=== PATIENT | female | born 1950 | race Caucasian/White ===

== ENCOUNTER 2016-09-18 12:20 | Outpatient (CLI) | payer OTHER ==
[2016-09-18 19:34] LABS: BASOPHILS # (AUTO) 0.1 10^3/uL (0.0-0.1); BASOPHILS % (AUTO) 0.6 %; EOSINOPHILS # (AUTO) 0.1 10^3/uL (0.0-0.7); EOSINOPHILS % (AUTO) 1.3 %; HCT - HEMATOCRIT 45.8 % (37.0-47.0); HGB - HEMOGLOBIN 14.8 g/dL (12.0-16.0); LYMPHOCYTES # (AUTO) 3.6 10^3/uL (1.5-3.5); LYMPHOCYTES % (AUTO) 33.5 %; MEAN CORPUSCULAR HEMOGLOBIN 30.4 pg (27.0-31.0); MEAN CORPUSCULAR HGB CONC 32.3 g/dL (32.0-36.0); MEAN CORPUSCULAR VOLUME 94.1 fL (81.0-99.0); MEAN PLATELET VOLUME 8.8 fL (7.9-10.8); MONOCYTES # (AUTO) 0.8 10^3/uL (0.0-1.0); MONOCYTES % (AUTO) 7.1 %; NEUTROPHILS # (AUTO) 6.2 10^3/uL (1.5-6.6); NEUTROPHILS % (AUTO) 57.5 %; RED BLOOD COUNT 4.86 10^6/uL (4.20-5.40); RED CELL DISTRIBUTION WIDTH 14.2 % (12.0-15.0); UNCORRECTED WHITE BLOOD COUNT 10.8 x10^3/uL; WHITE BLOOD COUNT 10.8 x10^3/uL (4.8-10.8)
[2016-09-18 19:50] LABS: ALBUMIN/GLOBULIN RATIO 1.6 (1.0-2.2); BILIRUBIN,TOTAL 0.5 mg/dL (0.2-1.0); BUN - BLOOD UREA NITROGEN 17 mg/dL (6-20); CALCIUM 9.8 mg/dL (8.5-10.3); CARBON DIOXIDE - CO2 26 mmol/L (21-32); CHLORIDE 106 mmol/L (101-111); CHOL/HDL RATIO 3.5 (<4.4); CHOLESTEROL 187 mg/dL; CREATININE 0.6 mg/dL (0.4-1.0); GFR - MDRD 100 (>89); GLUCOSE 91 mg/dL (70-100); HDL CHOLESTEROL 54 mg/dL; LDL/HDL RATIO 1.4 (<4.4); POTASSIUM 3.6 mmol/L (3.5-5.0); SODIUM 141 mmol/L (135-145); TOTAL PROTEIN 7.1 g/dL (6.7-8.2); TRIGLYCERIDES 287 mg/dL; URIC ACID 3.8 mg/dL (2.6-7.2); VLDL CHOLESTEROL 57 mg/dL
== END 2016-09-18 12:21 | disposition home or self-care (01) ==
LOC: LAB.WCP 12:20
PROVIDERS: ATTEND Family Medicine
DX: I10 Essential (primary) hypertension (principal); M10.00 Idiopathic gout, unspecified site
CPT/HCPCS: 36415; 80053; 80061; 84550; 85025

== ENCOUNTER 2017-07-13 06:07 | Day surgery (SDC) | payer OTHER, MEDICARE ==
[2017-07-13] MEDS ORDERED: ceFAZolin 1 GM VIAL ONE (06:33)
[2017-07-13] MEDS ORDERED: LACTATED RINGERS 1,000 ML IV ONE ×2 (06:54→08:35)
[2017-07-13] MEDS ORDERED: BUPIVACAINE 0.25% PF 30 ML VIAL ONE (07:36)
[2017-07-13] MEDS ORDERED: LIDOCAINE 1% 50 ML MDV ONE (07:47)
[2017-07-13] MEDS ORDERED: LIDOCAINE 1% 50 ML MDV SUBQ ONE ×2 (07:50)
[2017-07-13] MEDS ORDERED: levoFLOXacin 500 MG/100 ML 500 MG/100 ML BAG IV ONE ×2 (07:51→08:00)
[2017-07-13] MEDS ORDERED: PROPOFOL 200 MG/20 ML VIAL IVP ONE (08:40)
[2017-07-13] MEDS ORDERED: diphenhydrAMINE INJ 50 MG/ML VIAL IVP ONE (08:40)
[2017-07-13] MEDS ORDERED: traMADol 50 MG TABLET PO ONE (09:56)
[2017-07-13 10:01] VITALS: BP 135/87
--- NOTE | 2017-07-13 10:02 | OPERATIVE REPORT ---
DATE OF SERVICE: 07/13/2017 Physician: Joss Camejo MD DATE OF PROCEDURE: 07/13/2017 PREOPERATIVE DIAGNOSIS: Right thumb flexor tenosynovitis with triggering. POSTOPERATIVE DIAGNOSIS: Right thumb attritional tear with triggering at the A1 fercho. PROCEDURE PERFORMED: Right thumb A1 fercho release. SURGEON: Joss Camejo MD METAL BONDING WORKER: None. ANESTHESIA: Vascular anesthesia, type LMA. ESTIMATED BLOOD LOSS: 1 mL COMPLICATIONS: None. TOURNIQUET TIME: 19 minutes at 225 mmHg. DESCRIPTION OF PROCEDURE: The patient was brought into the operating room and initially after preparing her position and leads, she was given some preoperative antibiotics. Kefzol and clindamycin were not given due to a prior reaction to ampicillin and Kefzol. Cipro was selected. She was given a small amount of this and seemed to develop erythema on the left forearm. She was given Benadryl for this. Decision was made not to proceed with either IV antibiotics as risk of further reaction was not worth the benefit. Vancomycin was considered. She was given IV propofol and about 1 mL of 1% lidocaine without epinephrine was delivered subcutaneously across the base of the thumb and the expected area of incision. Right upper extremity was then prepped and sterilely draped. Tourniquet was applied eventually inflated for 19 minutes at 225 mmHg. Timeout was held to identify the patient, site and procedure. The gently transverse slightly oblique incision was made through the volar crease at the base of the thumb. This was carried through the dermis sharply with spreading with small scissors in a proximal distal direction opening up the soft tissue. The radial digital nerve was identified and a retractor used to sweep this to the radial side. Position of this was checked intermittently during the procedure. There seemed to be some inflammation overlying the A1 ferhco, but after some cleaning of this with a [place] elevator it could easily be seen. A longitudinal incision was then made in the central portion of the A1 fercho. Its tight fibers could be seen as well as the tendon beneath. With extension of the thumb it was there noted that there was demarcation between what appeared to be normal tendon and some roughed up and degenerated portion of tendon on the volar aspect. The ulnar digital nerve was not directly seen, but was protected at the ulnar side in the soft tissues in that area. The A1 fercho release was continued distally where the fercho thinned out and was no longer pressing on the tendon. With care, it was then continued proximally until a proximal margin was reached. At that point, the flexion and extension of the thumb clearly caused the tendon to go back and forth across the A1 fercho area. Although the patient was asleep and we could not do the usual awake, active test, it seemed that the release was complete. Wound was irrigated with normal saline. Tourniquet was deflated and pressure held to avoid bleeding. 4-0 nylon [id number] sutures were used to close the wound. Sterile bandage was applied. The patient was then awakened, extubated, and taken to the recovery room in good condition, having tolerated the procedure well. TD: 07/13/2017 10:00
== END 2017-07-13 06:08 | disposition home or self-care (01) ==
LOC: SDS 06:07
PROVIDERS: ATTEND Orthopaedic Surgery
PROC: 0LN70ZZ Release Right Hand Tendon, Open Approach (ICD-10-PCS; principal; 2017-07-13 07:30)
DX: M65.311 Trigger thumb, right thumb (principal); I10 Essential (primary) hypertension; F41.8 Other specified anxiety disorders; Z86.73 Personal history of transient ischemic attack (TIA), and cerebral infarction without residual deficits; J45.909 Unspecified asthma, uncomplicated; Z88.1 Allergy status to other antibiotic agents; Z88.5 Allergy status to narcotic agent; Z88.8 Allergy status to other drugs, medicaments and biological substances
CPT/HCPCS: 26055; A9270; J1200; J7120

== ENCOUNTER 2018-11-29 08:00 | Outpatient (CLI) | payer OTHER ==
[2018-11-29 18:35] LABS: BASOPHILS # (AUTO) 0.1 10^3/uL (0.0-0.1); BASOPHILS % (AUTO) 0.4 %; EOSINOPHILS # (AUTO) 0.2 10^3/uL (0.0-0.7); EOSINOPHILS % (AUTO) 1.7 %; HGB - HEMOGLOBIN 14.5 g/dL (12.0-16.0); LYMPHOCYTES # (AUTO) 4.3 10^3/uL (1.5-3.5); LYMPHOCYTES % (AUTO) 33.4 %; MEAN CORPUSCULAR HEMOGLOBIN 30.9 pg (27.0-31.0); MEAN CORPUSCULAR HGB CONC 32.9 g/dL (32.0-36.0); MEAN CORPUSCULAR VOLUME 93.8 fL (81.0-99.0); MEAN PLATELET VOLUME 10.7 fL (7.9-10.8); MONOCYTES # (AUTO) 0.8 10^3/uL (0.0-1.0); MONOCYTES % (AUTO) 5.9 %; NEUTROPHILS # (AUTO) 7.4 10^3/uL (1.5-6.6); NEUTROPHILS % (AUTO) 58.3 %; PLT - PLATELET COUNT 242 10^3/uL (130-450); RED CELL DISTRIBUTION WIDTH 13.7 % (12.0-15.0); WHITE BLOOD COUNT 12.7 x10^3/uL (4.8-10.8)
[2018-11-29 18:49] LABS: ALBUMIN 4.1 g/dL (3.2-5.5); ALBUMIN/GLOBULIN RATIO 1.6 (1.0-2.2); ALKALINE PHOSPHATASE 90 IU/L (42-121); ALT ALANINE AMINOTRANSFERASE 37 IU/L (10-60); AST ASPARTATE AMINOTRANSFERASE 29 IU/L (10-42); BILIRUBIN,TOTAL 0.5 mg/dL (0.2-1.0); BUN - BLOOD UREA NITROGEN 15 mg/dL (6-20); CALCIUM 9.9 mg/dL (8.5-10.3); CARBON DIOXIDE - CO2 24 mmol/L (21-32); CHLORIDE 104 mmol/L (101-111); CHOL/HDL RATIO 3.5 (<4.4); CHOLESTEROL 195 mg/dL; CREATININE 0.8 mg/dL (0.4-1.0); GFR - MDRD 71 (>89); GLUCOSE 174 mg/dL (70-100); HDL CHOLESTEROL 55 mg/dL; SODIUM 142 mmol/L (135-145); TOTAL PROTEIN 6.7 g/dL (6.7-8.2); URIC ACID 3.4 mg/dL (2.6-7.2)
[2018-11-29 19:08] LABS: LDL CHOLESTEROL,DIRECT 118 mg/dL; LDLD/HDL RATIO 2.1 (<4.4)
== END 2018-11-29 23:59 | disposition home or self-care (01) ==
LOC: LAB.WCP 08:00
PROVIDERS: ATTEND Family Medicine
DX: I10 Essential (primary) hypertension (principal); M10.00 Idiopathic gout, unspecified site
CPT/HCPCS: 36415; 80053; 80061; 83721; 84550; 85025

== ENCOUNTER 2018-12-15 08:00 | Outpatient (CLI) | payer OTHER ==
[2018-12-15 18:58] LABS: BASOPHILS # (AUTO) 0.1 10^3/uL (0.0-0.1); BASOPHILS % (AUTO) 0.4 %; EOSINOPHILS # (AUTO) 0.2 10^3/uL (0.0-0.7); EOSINOPHILS % (AUTO) 1.5 %; HGB - HEMOGLOBIN 13.7 g/dL (12.0-16.0); LYMPHOCYTES # (AUTO) 4.5 10^3/uL (1.5-3.5); LYMPHOCYTES % (AUTO) 31.7 %; MEAN CORPUSCULAR HEMOGLOBIN 30.6 pg (27.0-31.0); MEAN CORPUSCULAR HGB CONC 31.7 g/dL (32.0-36.0); MEAN CORPUSCULAR VOLUME 96.4 fL (81.0-99.0); MEAN PLATELET VOLUME 10.8 fL (7.9-10.8); MONOCYTES % (AUTO) 7.3 %; NEUTROPHILS # (AUTO) 8.4 10^3/uL (1.5-6.6); NEUTROPHILS % (AUTO) 58.7 %; PLT - PLATELET COUNT 254 10^3/uL (130-450); RED BLOOD COUNT 4.48 10^6/uL (4.20-5.40); RED CELL DISTRIBUTION WIDTH 14.1 % (12.0-15.0); WHITE BLOOD COUNT 14.3 x10^3/uL (4.8-10.8)
[2018-12-15 19:12] LABS: CREATININE 0.7 mg/dL (0.4-1.0)
== END 2018-12-15 23:59 | disposition home or self-care (01) ==
LOC: LAB.WCP 08:00
PROVIDERS: ATTEND Family Medicine
DX: E87.6 Hypokalemia (principal); D72.829 Elevated white blood cell count, unspecified
CPT/HCPCS: 36415; 80048; 85025

== ENCOUNTER 2019-01-12 08:00 | Outpatient (CLI) | payer OTHER ==
[2019-01-12 18:56] LABS: BASOPHILS # (AUTO) 0.1 10^3/uL (0.0-0.1); BASOPHILS % (AUTO) 0.4 %; EOSINOPHILS # (AUTO) 0.2 10^3/uL (0.0-0.7); EOSINOPHILS % (AUTO) 1.7 %; HGB - HEMOGLOBIN 14.8 g/dL (12.0-16.0); LYMPHOCYTES # (AUTO) 4.2 10^3/uL (1.5-3.5); MEAN CORPUSCULAR HEMOGLOBIN 30.1 pg (27.0-31.0); MEAN CORPUSCULAR HGB CONC 31.4 g/dL (32.0-36.0); MEAN CORPUSCULAR VOLUME 96.1 fL (81.0-99.0); MEAN PLATELET VOLUME 10.7 fL (7.9-10.8); MONOCYTES # (AUTO) 0.8 10^3/uL (0.0-1.0); MONOCYTES % (AUTO) 6.3 %; NEUTROPHILS # (AUTO) 7.7 10^3/uL (1.5-6.6); NEUTROPHILS % (AUTO) 59.1 %; PLT - PLATELET COUNT 259 10^3/uL (130-450); RED BLOOD COUNT 4.91 10^6/uL (4.20-5.40); RED CELL DISTRIBUTION WIDTH 14.3 % (12.0-15.0)
== END 2019-01-12 23:59 | disposition home or self-care (01) ==
LOC: LAB.WCP 08:00
PROVIDERS: ATTEND Family Medicine
DX: D72.829 Elevated white blood cell count, unspecified (principal)
CPT/HCPCS: 36415; 85025

== ENCOUNTER 2019-04-02 12:27 | Outpatient (CLI) | payer OTHER ==
--- NOTE | 2019-04-03 08:49 | MRI Report ---
Reason: INTRACRANIAL ANEURYSM Procedure Date: 04/02/2019 Accession Number: [id number] / [id number] Procedure: MRI - Angio Brain W/O (MRA) CPT Code: Final Report FULL RESULT: MR ANGIOGRAM HEAD WITHOUT CONTRAST INDICATION: 68-year-old female. Family history of aneurysm. TECHNIQUE: 3D [id number] MR angiography. COMPARISON: No similar comparison studies available for review at the time of interpretation. FINDINGS: There is diffuse irregularity in the contour of the intracranial ICAs at the carotid siphons bilaterally, probably secondary to atherosclerotic disease. No hemodynamically significant stenosis is identified. There is a wide-necked outpouching arising from the lateral surface of the anterior cavernous segment of the left internal carotid artery. The neck appears to measure about 4 mm on image 86 of series 401. The aneurysm points laterally and slightly posteriorly. It appears to measure roughly 2.2 mm in length. Also demonstrated is a small vascular outpouching arising from the lateral wall of the posterior cavernous segment of the right internal carotid artery (see images 95 through 98 of series 401). This may simply represent a normal inferolateral trunk. However, the structure does appear to be blind-ending making it difficult to exclude a small aneurysm. The neck appears to measure about 1.2 mm. The lesion points laterally for a similar distance. No other definite ICA aneurysm is identified. The A1 segment of the left anterior cerebral artery is hypoplastic with dominant right A1 segment. An anterior communicating artery is demonstrated. There appears to be good flow-related enhancement in the imaged DANUTA branches bilaterally. 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 The neck of the aneurysm measures about 2.5 mm. The dome also measures about 2.5 mm. The aneurysm points anteriorly for about 2.7 mm. No other obvious aneurysm is identified in either anterior cerebral artery circulation. The middle cerebral arteries are unremarkable. No aneurysm is demonstrated and there is no obvious occlusion or hemodynamically significant stenosis affecting the main branches of either MCA. The right vertebral artery is hypoplastic. There is a small amount of flow-related enhancement in the mid to distal V3 segment. However, the distal-most aspect of the V3 segment shows no flow-related enhancement. There is no flow-related enhancement in the proximal V4 segment. These findings suggest probable occlusion. Flow-related enhancement is seen in the distal V4 segment, almost certainly filling in a retrograde fashion. However, no definite right PICA is demonstrated. There is a large right AICA that probably supplies the right PICA territory (normal anatomical variant). The left vertebral artery is patent. The left PICA is patent. No aneurysm is seen at the left PICA origin. The basilar artery, superior cerebellar arteries and the right PERL PROGRAMMER are unremarkable. The P1 segment for the left posterior cerebral artery is either extremely hypoplastic or developmentally absent. There is a large left posterior communicating artery that supplies the P2 and distal left PERL PROGRAMMER branches. This represents a known anatomical variant ( origin of the left PERL PROGRAMMER). There appears to be a tiny right posterior communicating artery. No aneurysms are seen arising from the basilar artery trunk or apex. IMPRESSION: 1. There is diffuse luminal irregularity in the carotid siphons probably from atherosclerotic disease. 2. 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 In addition, there may be a tiny aneurysm arising from the posterior cavernous segment of the right internal carotid artery (see above). These cavernous ICA lesions would probably not require therapy. Both should be extradural in location and rupture should therefore not result in a subarachnoid hemorrhage. 3. 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 The anterior communicating artery aneurysm points almost directly anteriorly. 4. No other intracranial aneurysm is identified. 5. There appears to be occlusion of the distal V3/proximal V4 segment of the right vertebral artery, age-indeterminate. The distal V4 segment appears to be patent. It almost certainly fills in a retrograde fashion. No right PICA is identified. The right PICA territory may be supplied by the ipsilateral AICA (normal anatomical variant). The call report notification system was initiated by Dr. Chidi Holm at 07:54 AM on 04/03/2019. A preliminary report for this examination was called to Dr. Jonas (covering for Dr. Obando) following interpretation on 04/03/2019 at 8:25 AM. Apparently this patient has known intracranial aneurysm(s) that have been previously documented on prior imaging studies. However, Dr. Jonas was not aware of where the prior imaging had been performed.
== END 2019-04-02 12:28 | disposition home or self-care (01) ==
LOC: DI 12:27
PROVIDERS: ATTEND Family Medicine
DX: I67.1 Cerebral aneurysm, nonruptured (principal)
CPT/HCPCS: 70544

== ENCOUNTER 2019-06-01 13:09 | Outpatient (CLI) | payer OTHER ==
[2019-06-01 19:33] LABS: CALCIUM 9.5 mg/dL (8.5-10.3); CREATININE 0.7 mg/dL (0.4-1.0)
== END 2019-06-01 23:59 | disposition home or self-care (01) ==
LOC: LAB.WCP 13:09
PROVIDERS: ATTEND Family Medicine
DX: I10 Essential (primary) hypertension (principal)
CPT/HCPCS: 36415; 80048

== ENCOUNTER 2019-07-02 08:17 | Outpatient (CLI) | payer OTHER ==
--- NOTE | 2019-07-03 07:33 | Ultrasound Report ---
Reason: RUQ ABDOMINAL PAIN Procedure Date: 07/02/2019 Accession Number: [id number] / [id number] Procedure: US - Abdomen Complete CPT Code: Final Report FULL RESULT: EXAM: ABDOMEN ULTRASOUND EXAM DATE: 07/02/2019 09:14 AM. CLINICAL HISTORY: RUQ ABDOMINAL PAIN. COMPARISON: None. TECHNIQUE: Real-time scanning was performed with static images obtained. FINDINGS: Liver: Hyperechoic. Fatty sparing along the gallbladder fossa. 14.4 cm. Main portal vein flow: Hepatopetal. Gallbladder: Echogenic structure along the gallbladder wall without posterior acoustic shadowing or mobility, measures 3 mm, consistent with gallbladder polyp. Additional gallbladder polyps, largest measuring 6 mm. No shadowing gallstones. Negative sonographic David sign. Biliary System: Common bile duct measures 6 mm. No intrahepatic or extrahepatic ductal dilatation. Pancreas: Visualized portion is unremarkable. Kidneys: Right: 11.7 cm longitudinally. Normal. No contour-deforming mass, stones, or hydronephrosis. Left: 10.1 cm longitudinally. Normal. No contour-deforming mass, stones, or hydronephrosis. Spleen: 9.9 x 2.7 x 10.1 cm for a volume of 139 mL. Normal in size and echotexture. Aorta and Inferior Vena Cava: Aortic atherosclerotic disease present Other: None. IMPRESSION: 1. Hepatic steatosis. 2. Small gallbladder polyps, largest measuring 6 mm RADIA
== END 2019-07-02 08:18 | disposition home or self-care (01) ==
LOC: DI 08:17
PROVIDERS: ATTEND Family Medicine
DX: K82.4 Cholesterolosis of gallbladder (principal); K76.0 Fatty (change of) liver, not elsewhere classified; R10.11 Right upper quadrant pain
CPT/HCPCS: 76700

== ENCOUNTER 2019-07-25 08:53 | Outpatient (CLI) | payer OTHER ==
[2019-07-25] MEDS ORDERED: SINCALIDE 5 MCG VIAL ONE (10:43)
[2019-07-25] MEDS ORDERED: SODIUM CHLORIDE 0.9% IV ONE (12:16)
[2019-07-25] MEDS ORDERED: SINCALIDE IV ONE (12:16)
--- NOTE | 2019-07-26 08:26 | Nuclear Medicine Report ---
Reason: ABD, RUQ Procedure Date: 07/25/2019 Accession Number: [id number] / [id number] Procedure: NM - Hepatobiliary HIDA w/ Rx CPT Code: Final Report FULL RESULT: EXAM: HEPATOBILIARY SCAN WITH CCK/KINEVAC ADMINISTRATION EXAM DATE: 07/25/2019 12:20 PM. CLINICAL HISTORY: Abdominal pain, RUQ. COMPARISON: None. TECHNIQUE: Following the intravenous administration of 5.1 mCi of Tc99m Mebrofenin, a hepatobiliary scan was done centered on the liver and gallbladder in multiple sequential images and projections. Following the intravenous administration of 1.58 mcg of CCK/ Kinevac over the course of approximately 60 minutes, dynamic imaging was done and the gallbladder ejection fraction was calculated. FINDINGS: Normal extraction of tracer from the blood pool indicating normal hepatocellular function. The liver size and shape is grossly within normal limits. Appearance of tracer in the biliary tree as early as 10 minutes, within normal limits. Appearance of tracer in the gallbladder as early as 15 minutes, within normal limits, with good progression of filling throughout the remainder of the initial hour. Appearance of tracer in the small bowel as early as 35 minutes, within normal limits. With CCK administration, the gallbladder demonstrates an effective contraction. The gallbladder ejection fraction is calculated to be 90%, well above the lower limit of normal of 38% for a 60-minute injection. The patient did not report symptoms after CCK administration. No evidence of enteric reflux into the stomach. No significant collection of tracer remaining in the common bile duct by the end of the study. IMPRESSION: 1. Patent cystic duct. 2. Patent common bile duct. 3. Negative for acute or chronic cholecystitis. 4. No enterogastric bile reflux. 5. Gallbladder ejection fraction of 90%. RADIA
== END 2019-07-25 08:54 | disposition home or self-care (01) ==
LOC: DI 08:53
PROVIDERS: ATTEND Surgery
DX: R10.11 Right upper quadrant pain (principal)
CPT/HCPCS: 78227; J7040

== ENCOUNTER 2020-03-01 09:40 | Outpatient (CLI) | payer OTHER ==
[2020-03-01 12:08] LABS: BASOPHILS % (AUTO) 0.5 %; EOSINOPHILS % (AUTO) 1.7 %; HGB - HEMOGLOBIN 15.1 g/dL (12.0-16.0); LYMPHOCYTES % (AUTO) 40.2 %; MEAN CORPUSCULAR HEMOGLOBIN 30.8 pg (27.0-31.0); MEAN CORPUSCULAR HGB CONC 32.4 g/dL (32.0-36.0); MEAN CORPUSCULAR VOLUME 94.9 fL (81.0-99.0); MEAN PLATELET VOLUME 10.4 fL (7.9-10.8); MONOCYTES % (AUTO) 8.5 %; NEUTROPHILS % (AUTO) 48.6 %; PLT - PLATELET COUNT 280 10^3/uL (130-450); RED BLOOD COUNT 4.91 10^6/uL (4.20-5.40); RED CELL DISTRIBUTION WIDTH 13.6 % (12.0-15.0); WHITE BLOOD COUNT 12.5 x10^3/uL (4.8-10.8)
[2020-03-01 12:18] LABS: ABNORMAL LYMPHS % (MANUAL) 0 %; BAND NEUTROPHILS % (MANUAL) 0 %
[2020-03-01 12:39] LABS: EOSINOPHILS # (MANUAL) 0.3 10^3/uL (0-0.7); LYMPHOCYTES # (MANUAL) 7.3 10^3/uL (1.5-3.5); LYMPHOCYTES % (MANUAL) 58 %; MONOCYTES # (MANUAL) 1.1 10^3/uL (0.0-1.0)
[2020-03-01 12:42] LABS: DIFFERENTIAL COMMENT MANUAL DIFFERENTIAL; PLATELET ESTIMATE, MANUAL NORMAL (130-450,000) (NORMAL); PLATELET MORPHOLOGY NORMAL APP (NORMAL); RBC MORPHOLOGY (MULTIPLE) NORMAL APP (NORMAL)
[2020-03-01 13:53] LABS: ALBUMIN 4.3 g/dL (3.2-5.5); ALBUMIN/GLOBULIN RATIO 1.5 (1.0-2.2); ALKALINE PHOSPHATASE 123 IU/L (42-121); ALT ALANINE AMINOTRANSFERASE 31 IU/L (10-60); AST ASPARTATE AMINOTRANSFERASE 25 IU/L (10-42); BILIRUBIN,TOTAL 0.7 mg/dL (0.2-1.0); BUN - BLOOD UREA NITROGEN 17 mg/dL (6-20); CARBON DIOXIDE - CO2 24 mmol/L (21-32); CHLORIDE 104 mmol/L (101-111); CHOL/HDL RATIO 3.1 (<4.4); CHOLESTEROL 172 mg/dL; CREATININE 0.9 mg/dL (0.4-1.0); GLUCOSE 136 mg/dL (70-100); HDL CHOLESTEROL 55 mg/dL; LDL CHOLESTEROL,CALCULATED 92 mg/dL; LDL/HDL RATIO 1.7 (<4.4); SODIUM 141 mmol/L (135-145); TOTAL PROTEIN 7.1 g/dL (6.7-8.2); URIC ACID 3.9 mg/dL (2.6-7.2); VLDL CHOLESTEROL 25 mg/dL
== END 2020-03-01 23:59 | disposition home or self-care (01) ==
LOC: LAB.WCP 09:40
PROVIDERS: ATTEND Family Medicine
DX: I10 Essential (primary) hypertension (principal); M10.00 Idiopathic gout, unspecified site
CPT/HCPCS: 36415; 80053; 80061; 83721; 84443; 84550; 85025

== ENCOUNTER 2020-06-20 11:07 | Outpatient (CLI) | payer OTHER ==
--- NOTE | 2020-06-20 13:11 | XRAY Report ---
PROCEDURE: Shoulder 3 View LT INDICATIONS: LEFT SHOULDER PAIN TECHNIQUE: 3 views of the shoulder were acquired. COMPARISON: None. FINDINGS: Bones: No fractures or dislocations. No suspicious bony lesions. Visualized ribs appear intact. Soft tissues: No suspicious soft tissue calcifications. IMPRESSION: No trauma found, source of pain is not identified. Reviewed by: Ozzy Hurt MD on 06/20/2020 1:10 PM [facility] Approved by: Ozzy Hurt MD on 06/20/2020 1:10 PM [facility] Station ID: [id number]
== END 2020-06-20 23:59 | disposition home or self-care (01) ==
LOC: DI.WCP 11:07
PROVIDERS: ATTEND Physician Assistant Medical
DX: M25.512 Pain in left shoulder (principal)

== ENCOUNTER 2020-08-08 08:00 | Outpatient (CLI) | payer OTHER ==
[2020-08-08 18:26] LABS: BASOPHILS # (AUTO) 0.1 10^3/uL (0.0-0.1); BASOPHILS % (AUTO) 0.5 %; EOSINOPHILS # (AUTO) 0.2 10^3/uL (0.0-0.7); EOSINOPHILS % (AUTO) 1.7 %; HCT - HEMATOCRIT 46.3 % (37.0-47.0); HGB - HEMOGLOBIN 14.9 g/dL (12.0-16.0); LYMPHOCYTES # (AUTO) 4.6 10^3/uL (1.5-3.5); LYMPHOCYTES % (AUTO) 36.2 %; MEAN CORPUSCULAR HEMOGLOBIN 30.8 pg (27.0-31.0); MEAN CORPUSCULAR HGB CONC 32.2 g/dL (32.0-36.0); MEAN CORPUSCULAR VOLUME 95.7 fL (81.0-99.0); MEAN PLATELET VOLUME 10.3 fL (7.9-10.8); MONOCYTES # (AUTO) 0.9 10^3/uL (0.0-1.0); MONOCYTES % (AUTO) 7.4 %; NEUTROPHILS # (AUTO) 6.8 10^3/uL (1.5-6.6); NEUTROPHILS % (AUTO) 53.6 %; PLT - PLATELET COUNT 266 10^3/uL (130-450); RED BLOOD COUNT 4.84 10^6/uL (4.20-5.40); RED CELL DISTRIBUTION WIDTH 14.3 % (12.0-15.0); WHITE BLOOD COUNT 12.7 x10^3/uL (4.8-10.8)
[2020-08-08 18:40] LABS: ALBUMIN 4.7 g/dL (3.2-5.5); ALBUMIN/GLOBULIN RATIO 1.6 (1.0-2.2); ALKALINE PHOSPHATASE 113 IU/L (42-121); ALT ALANINE AMINOTRANSFERASE 58 IU/L (10-60); AST ASPARTATE AMINOTRANSFERASE 39 IU/L (10-42); BILIRUBIN,TOTAL 0.6 mg/dL (0.2-1.0); BUN - BLOOD UREA NITROGEN 15 mg/dL (6-20); CALCIUM 10.1 mg/dL (8.5-10.3); CARBON DIOXIDE - CO2 25 mmol/L (21-32); CHLORIDE 104 mmol/L (101-111); CHOL/HDL RATIO 3.2 (<4.4); CHOLESTEROL 185 mg/dL; CREATININE 0.7 mg/dL (0.4-1.0); GFR - MDRD 82 (>89); GLUCOSE 98 mg/dL (70-100); HDL CHOLESTEROL 58 mg/dL; LDL CHOLESTEROL,CALCULATED 66 mg/dL; LDL/HDL RATIO 1.1 (<4.4); POTASSIUM 3.6 mmol/L (3.5-5.0); SODIUM 140 mmol/L (135-145); TOTAL PROTEIN 7.6 g/dL (6.7-8.2); TRIGLYCERIDES 307 mg/dL; VLDL CHOLESTEROL 61 mg/dL
== END 2020-08-08 23:59 | disposition home or self-care (01) ==
LOC: LAB.WCP 08:00
PROVIDERS: ATTEND Family Medicine
DX: I20.9 Angina pectoris, unspecified (principal)
CPT/HCPCS: 36415; 80053; 80061; 83721; 84484; 85025

== ENCOUNTER 2020-08-08 14:10 | Outpatient (CLI) | payer OTHER ==
--- NOTE | 2020-08-08 17:16 | XRAY Report ---
PROCEDURE: Chest 2 View X-Ray INDICATIONS: ANGINA PECTORIS TECHNIQUE: 2 view(s) of the chest. COMPARISON: None. FINDINGS: Surgical changes and devices: None. Lungs and pleura: No pleural effusions or pneumothorax. Lungs are clear. Mediastinum: Mediastinal contours are normal. Heart size is normal. Bones and chest wall: No suspicious bony abnormalities. Soft tissues appear unremarkable. IMPRESSION: Chest without acute cardiopulmonary abnormalities. Reviewed by: Lino Bellamy MD on 08/08/2020 5:15 PM PDT Approved by: Lino Bellamy MD on 08/08/2020 5:15 PM PDT Station ID: [id number]
== END 2020-08-08 23:59 | disposition home or self-care (01) ==
LOC: DI.WCP 14:10
PROVIDERS: ATTEND Family Medicine
DX: I20.9 Angina pectoris, unspecified (principal)

== ENCOUNTER 2020-10-24 08:00 | Outpatient (CLI) | payer OTHER ==
[2020-10-24 18:36] LABS: CALCIUM 9.7 mg/dL (8.5-10.3); CREATININE 0.8 mg/dL (0.4-1.0); POTASSIUM 3.2 mmol/L (3.5-5.0)
== END 2020-10-24 23:59 | disposition home or self-care (01) ==
LOC: LAB.WCP 08:00
PROVIDERS: ATTEND Family Medicine
DX: I10 Essential (primary) hypertension (principal)
CPT/HCPCS: 36415; 80048

== ENCOUNTER 2021-04-12 11:25 | Outpatient (CLI) | payer OTHER ==
[2021-04-12 11:33] LABS: ABNORMAL LYMPHS % (MANUAL) 0 %
[2021-04-12 18:07] LABS: BASOPHILS % (AUTO) 0.5 %; EOSINOPHILS % (AUTO) 1.7 %; HCT - HEMATOCRIT 44.4 % (37.0-47.0); HGB - HEMOGLOBIN 14.4 g/dL (12.0-16.0); LYMPHOCYTES % (AUTO) 38.8 %; MEAN CORPUSCULAR HEMOGLOBIN 29.9 pg (27.0-31.0); MEAN CORPUSCULAR HGB CONC 32.4 g/dL (32.0-36.0); MEAN CORPUSCULAR VOLUME 92.3 fL (81.0-99.0); MEAN PLATELET VOLUME 10.2 fL (7.9-10.8); MONOCYTES % (AUTO) 7.3 %; NEUTROPHILS % (AUTO) 51.2 %; PLT - PLATELET COUNT 259 10^3/uL (130-450); RED BLOOD COUNT 4.81 10^6/uL (4.20-5.40); RED CELL DISTRIBUTION WIDTH 14.1 % (12.0-15.0); WHITE BLOOD COUNT 12.9 x10^3/uL (4.8-10.8)
[2021-04-12 18:22] LABS: ALBUMIN 4.1 g/dL (3.2-5.5); ALBUMIN/GLOBULIN RATIO 1.4 (1.0-2.2); BILIRUBIN,TOTAL 0.8 mg/dL (0.2-1.0); CALCIUM 9.6 mg/dL (8.5-10.3); CREATININE 0.8 mg/dL (0.4-1.0); POTASSIUM 3.6 mmol/L (3.5-5.0); TOTAL PROTEIN 7.1 g/dL (6.7-8.2); URIC ACID 3.5 mg/dL (2.6-7.2)
[2021-04-12 19:34] LABS: BAND NEUTROPHILS % (MANUAL) 3 %; EOSINOPHILS # (MANUAL) 0.5 10^3/uL (0-0.7); LYMPHOCYTES # (MANUAL) 5.9 10^3/uL (1.5-3.5); LYMPHOCYTES % (MANUAL) 39 %; MONOCYTES # (MANUAL) 0.8 10^3/uL (0.0-1.0); NEUTROPHILS # (MANUAL) 5.7 10^3/uL (1.5-6.6); PLATELET ESTIMATE, MANUAL NORMAL (130-450,000) (NORMAL); PLATELET MORPHOLOGY NORMAL APPEARANCE (NORMAL); RBC MORPHOLOGY (MULTIPLE) NORMAL APPEARANCE (NORMAL); REACTIVE LYMPHS % (MANUAL) 7 %
[2021-04-12 19:35] LABS: DIFFERENTIAL COMMENT MANUAL DIFFERENTIAL
== END 2021-04-12 23:59 | disposition home or self-care (01) ==
LOC: LAB.WCP 11:25
PROVIDERS: ATTEND Family Medicine
DX: D72.829 Elevated white blood cell count, unspecified (principal); M10.9 Gout, unspecified
CPT/HCPCS: 36415; 80053; 81599; 84550; 85025

== ENCOUNTER 2021-05-22 08:00 | Outpatient (CLI) | payer MEDICARE, OTHER | END 2021-05-22 23:59 | disposition home or self-care (01) | LOC: LAB.WCP 08:00 | PROVIDERS: ATTEND Family Medicine | DX: D72.829 Elevated white blood cell count, unspecified (principal) | CPT/HCPCS: 81599; 88184; 88185; 88189 ==

== ENCOUNTER 2021-07-03 08:00 | Outpatient (CLI) | payer MEDICARE, OTHER | END 2021-07-03 23:59 | disposition home or self-care (01) | LOC: LAB.R 08:00 | PROVIDERS: ATTEND Family Medicine | DX: L03.311 Cellulitis of abdominal wall (principal) | CPT/HCPCS: 87070; 87081; 87205; 87640 ==

== ENCOUNTER 2021-12-02 08:28 | Outpatient (CLI) | payer MEDICARE ==
[2021-12-02 11:58] LABS: BASOPHILS # (AUTO) 0.1 10^3/uL (0.0-0.1); BASOPHILS % (AUTO) 0.4 %; EOSINOPHILS # (AUTO) 0.2 10^3/uL (0.0-0.7); EOSINOPHILS % (AUTO) 1.6 %; HCT - HEMATOCRIT 44.9 % (37.0-47.0); HGB - HEMOGLOBIN 14.8 g/dL (12.0-16.0); LYMPHOCYTES # (AUTO) 4.5 10^3/uL (1.5-3.5); LYMPHOCYTES % (AUTO) 33.4 %; MEAN CORPUSCULAR HEMOGLOBIN 29.5 pg (27.0-31.0); MEAN CORPUSCULAR VOLUME 89.4 fL (81.0-99.0); MEAN PLATELET VOLUME 10.7 fL (7.9-10.8); MONOCYTES % (AUTO) 7.1 %; NEUTROPHILS # (AUTO) 7.6 10^3/uL (1.5-6.6); NEUTROPHILS % (AUTO) 57.1 %; PLT - PLATELET COUNT 227 10^3/uL (130-450); RED BLOOD COUNT 5.02 10^6/uL (4.20-5.40); RED CELL DISTRIBUTION WIDTH 15.6 % (12.0-15.0); WHITE BLOOD COUNT 13.4 x10^3/uL (4.8-10.8)
[2021-12-02 12:28] LABS: THYROID STIMULATING HORMONE 3.91 uIU/mL (0.34-5.60)
[2021-12-02 12:39] LABS: ALBUMIN 4.4 g/dL (3.2-5.5); ALBUMIN/GLOBULIN RATIO 1.7 (1.0-2.2); ALKALINE PHOSPHATASE 114 IU/L (42-121); ALT ALANINE AMINOTRANSFERASE 20 IU/L (10-60); AST ASPARTATE AMINOTRANSFERASE 19 IU/L (10-42); BILIRUBIN,TOTAL 0.8 mg/dL (0.2-1.0); BUN - BLOOD UREA NITROGEN 16 mg/dL (6-20); CALCIUM 9.8 mg/dL (8.5-10.3); CARBON DIOXIDE - CO2 25 mmol/L (21-32); CHLORIDE 105 mmol/L (101-111); CHOL/HDL RATIO 3.1 (<4.4); CHOLESTEROL 169 mg/dL; CREATININE 0.8 mg/dL (0.4-1.0); GFR - MDRD 71 (>89); GLUCOSE 108 mg/dL (70-100); HDL CHOLESTEROL 55 mg/dL; LDL CHOLESTEROL,CALCULATED 74 mg/dL; LDL/HDL RATIO 1.3 (<4.4); MAGNESIUM 2.2 mg/dL (1.7-2.8); POTASSIUM 3.9 mmol/L (3.5-5.0); SODIUM 141 mmol/L (135-145); TRIGLYCERIDES 199 mg/dL; VLDL CHOLESTEROL 40 mg/dL
[2021-12-02 13:36] LABS: ESTIMATED AVERAGE GLUCOSE 126 mg/dL (70-100)
== END 2021-12-02 08:29 | disposition home or self-care (01) ==
LOC: LAB.N 08:28
PROVIDERS: ATTEND Physician Assistant
DX: E78.1 Pure hyperglyceridemia (principal); Z51.81 Encounter for therapeutic drug level monitoring; R73.01 Impaired fasting glucose; I25.10 Atherosclerotic heart disease of native coronary artery without angina pectoris
CPT/HCPCS: 36415; 80053; 80061; 83036; 83721; 83735; 84443; 85025

== ENCOUNTER 2022-02-21 09:22 | Outpatient (CLI) | payer MEDICARE ==
[2022-02-21 18:00] LABS: BILIRUBIN,URINE NEGATIVE (NEGATIVE); GLUCOSE, URINE (UA) NEGATIVE (NEGATIVE); KETONES,URINE (UA) NEGATIVE (NEGATIVE); LEUKOCYTE ESTERASE, URINE TRACE (NEGATIVE); NITRITE,URINE NEGATIVE (NEGATIVE); OCCULT BLOOD,URINE NEGATIVE (NEGATIVE); PROTEIN,URINE NEGATIVE (NEGATIVE); UROBILINOGEN,URINE 0.2 (NORMAL) E.U./dL (NORMAL)
[2022-02-21 18:09] LABS: CLARITY,URINE CLEAR (CLEAR)
[2022-02-21 18:12] LABS: BACTERIA,URINE Rare /HPF (None Seen); RBC,URINE 0-5 /HPF (0-5); SQUAMOUS EPITHELIAL CELL,UR RARE Squamous (<= Few)
== END 2022-02-21 23:59 | disposition home or self-care (01) ==
LOC: LAB.N 09:22
PROVIDERS: ATTEND Physician Assistant
DX: R30.0 Dysuria (principal)
CPT/HCPCS: 81001; 87086

== ENCOUNTER 2022-02-26 08:00 | Outpatient (CLI) | payer MEDICARE ==
[2022-02-26 17:53] LABS: BILIRUBIN,URINE NEGATIVE (NEGATIVE); GLUCOSE, URINE (UA) NEGATIVE (NEGATIVE); KETONES,URINE (UA) TRACE mg/dL (NEGATIVE); LEUKOCYTE ESTERASE, URINE SMALL (NEGATIVE); NITRITE,URINE NEGATIVE (NEGATIVE); OCCULT BLOOD,URINE NEGATIVE (NEGATIVE); PROTEIN,URINE TRACE mg/dL (NEGATIVE); UROBILINOGEN,URINE 0.2 (NORMAL) E.U./dL (NORMAL)
[2022-02-26 17:54] LABS: CLARITY,URINE CLOUDY (CLEAR)
[2022-02-26 18:11] LABS: AMORPHOUS SEDIMENT,UR Marked /LPF; BACTERIA,URINE Few /HPF (None Seen); EPITHELIAL CELLS,UR RARE Transitional /HPF (<= Few); RBC,URINE 0-5 /HPF (0-5); SQUAMOUS EPITHELIAL CELL,UR NONE SEEN (<= Few)
== END 2022-02-26 23:59 | disposition home or self-care (01) ==
LOC: LAB.N 08:00
PROVIDERS: ATTEND Physician Assistant
DX: R30.0 Dysuria (principal)
CPT/HCPCS: 81001; 81003; 87086; 87181

== ENCOUNTER 2022-03-20 08:30 | Outpatient (CLI) | payer MEDICARE ==
[2022-03-20 12:30] LABS: BASOPHILS # (AUTO) 0.1 10^3/uL (0.0-0.1); BASOPHILS % (AUTO) 0.5 %; EOSINOPHILS # (AUTO) 0.3 10^3/uL (0.0-0.7); EOSINOPHILS % (AUTO) 2.7 %; HCT - HEMATOCRIT 41.3 % (37.0-47.0); HGB - HEMOGLOBIN 13.3 g/dL (12.0-16.0); LYMPHOCYTES # (AUTO) 4.2 10^3/uL (1.5-3.5); LYMPHOCYTES % (AUTO) 41.1 %; MEAN CORPUSCULAR HEMOGLOBIN 30.2 pg (27.0-31.0); MEAN CORPUSCULAR HGB CONC 32.2 g/dL (32.0-36.0); MEAN CORPUSCULAR VOLUME 93.7 fL (81.0-99.0); MEAN PLATELET VOLUME 10.3 fL (7.9-10.8); MONOCYTES # (AUTO) 0.8 10^3/uL (0.0-1.0); MONOCYTES % (AUTO) 7.5 %; NEUTROPHILS # (AUTO) 4.8 10^3/uL (1.5-6.6); NEUTROPHILS % (AUTO) 47.9 %; PLT - PLATELET COUNT 226 10^3/uL (130-450); RED BLOOD COUNT 4.41 10^6/uL (4.20-5.40); RED CELL DISTRIBUTION WIDTH 14.8 % (12.0-15.0); WHITE BLOOD COUNT 10.1 x10^3/uL (4.8-10.8)
[2022-03-20 12:56] LABS: ALBUMIN 4.2 g/dL (3.2-5.5); ALBUMIN/GLOBULIN RATIO 1.8 (1.0-2.2); ALKALINE PHOSPHATASE 101 IU/L (42-121); ALT ALANINE AMINOTRANSFERASE 21 IU/L (10-60); AST ASPARTATE AMINOTRANSFERASE 22 IU/L (10-42); BUN - BLOOD UREA NITROGEN 15 mg/dL (6-20); CALCIUM 9.6 mg/dL (8.5-10.3); CARBON DIOXIDE - CO2 26 mmol/L (21-32); CHLORIDE 109 mmol/L (101-111); CHOL/HDL RATIO 3.3 (<4.4); CHOLESTEROL 199 mg/dL; CREATININE 0.8 mg/dL (0.4-1.0); GFR - MDRD 71 (>89); GLUCOSE 102 mg/dL (70-100); HDL CHOLESTEROL 60 mg/dL; LDL CHOLESTEROL,CALCULATED 112 mg/dL; LDL/HDL RATIO 1.9 (<4.4); POTASSIUM 3.5 mmol/L (3.5-5.0); SODIUM 144 mmol/L (135-145); TOTAL PROTEIN 6.6 g/dL (6.7-8.2); TRIGLYCERIDES 135 mg/dL; VLDL CHOLESTEROL 27 mg/dL
== END 2022-03-20 08:31 | disposition home or self-care (01) ==
LOC: LAB.N 08:30
PROVIDERS: ATTEND Internal Medicine Cardiovascular Disease
DX: I25.10 Atherosclerotic heart disease of native coronary artery without angina pectoris (principal)
CPT/HCPCS: 36415; 80053; 80061; 83721; 85025

== ENCOUNTER 2022-04-30 10:45 | Outpatient (CLI) | payer MEDICARE ==
[2022-04-30 20:09] LABS: CALCIUM 9.6 mg/dL (8.5-10.3); CREATININE 0.8 mg/dL (0.4-1.0); POTASSIUM 3.5 mmol/L (3.5-5.0)
== END 2022-04-30 10:46 | disposition home or self-care (01) ==
LOC: LAB.N 10:45
PROVIDERS: ATTEND Internal Medicine Cardiovascular Disease
DX: I10 Essential (primary) hypertension (principal)
CPT/HCPCS: 36415; 80048

== ENCOUNTER 2024-01-26 14:53 | Outpatient (CLI) | payer MEDICARE ==
--- NOTE | 2024-01-26 19:18 | Ultrasound Report ---
PROCEDURE: Extremity Soft Tissue Limited INDICATIONS: R FOREARM LIPOMA TECHNIQUE: Real-time scanning was performed of the right forearm, with image documentation. COMPARISON: None. FINDINGS: No sonographic abnormality is seen at the patient indicated palpable areas of concern IMPRESSION: No significant sonographic abnormality at the palpable areas of concern. Reviewed by: Angelo Vaz MD on 01/26/2024 7:17 PM PDT Approved by: Angelo Vaz MD on 01/26/2024 7:17 PM PDT Station ID: [id number]
--- NOTE | 2024-01-26 19:19 | Ultrasound Report ---
PROCEDURE: Soft Tissue Head or Neck INDICATIONS: L NECK LIPOMA TECHNIQUE: Real-time scanning was performed of the neck, with image documentation. COMPARISON: None FINDINGS: No significant sonographic abnormality is seen at the patient indicated palpable area of concern in t he left neck. IMPRESSION: No significant sonographic abnormality. Reviewed by: Angelo Vaz MD on 01/26/2024 7:18 PM PDT Approved by: Angelo Vaz MD on 01/26/2024 7:18 PM PDT Station ID: [id number]
== END 2024-01-26 14:54 | disposition home or self-care (01) ==
LOC: DI 14:53
DX: D17.79 Benign lipomatous neoplasm of other sites (principal); D17.0 Benign lipomatous neoplasm of skin and subcutaneous tissue of head, face and neck